=== PATIENT | female | born 1965 | race Caucasian/White ===

== ENCOUNTER 2018-08-07 14:21 | Emergency (ER) | payer OTHER ==
[~2018-08-07] VITALS: Ht 165.1 cm; Wt 51.7 kg
--- NOTE | 2018-08-07 14:21 | NUR ---
BIB SELF FOR ANXIETY AND PANIC ATTACK, "MY HANDS AND FEET FEELS NUMB". TO ER BED 2, HOOKED TO MONITOR, VSS, CHANGED TO DAREK, AWAITING MD MASON.
--- NOTE | 2018-08-07 14:52 | NUR ---
DR CAREY AT BEDSIDE
[2018-08-07] MEDS ORDERED: LORAZEPAM 0.5 MG TABLET PO ONE (15:00)
[2018-08-07] MEDS ORDERED: LORAZEPAM 0.5 MG TABLET ONE (15:08)
[2018-08-07 15:10] LABS: BASOPHILS % (AUTO) 0.7 % (0.0-2.0); EOSINOPHILS % (AUTO) 0.7 % (0.0-6.0); HEMATOCRIT 43 % (33-45); HEMOGLOBIN 14.6 g/dL (11.5-14.8); LYMPHOCYTES # (AUTO) 0.8 /CMM (0.8-4.8); LYMPHOCYTES % (AUTO) 13.1 % (20.0-44.0); MEAN CORPUSCULAR HGB CONC 34 g/dl (31.0-36.0); MEAN CORPUSCULAR VOLUME 87 fL (82-100); MONOCYTES # (AUTO) 0.3 /CMM (0.1-1.30); MONOCYTES % (AUTO) 5.4 % (2.0-12.0); NEUTROPHILS # (AUTO) 4.8 /CMM (1.8-8.9); NEUTROPHILS % (AUTO) 80.1 % (43.0-81.0); PLATELET COUNT (AUTO) 258 /CMM (150-450); RED BLOOD CELL COUNT(AUTO) 4.91 MIL/uL (4.0-5.2); WHITE BLOOD COUNT (AUTO) 5.9 K/uL (4.3-11.0)
[2018-08-07 15:17] LABS: CALCIUM, SERUM 9.4 mg/dL (8.5-10.1); CARBON DIOXIDE 20 mmol/L (21-32); CHLORIDE 105 mmol/L (98-107); GLUCOSE 109 mg/dL (74-106); POTASSIUM 3.5 mmol/L (3.5-5.1); SODIUM SERUM 139 mmol/L (136-145); UREA NITROGEN, BLOOD 12 mg/dL (7-18)
--- NOTE | 2018-08-07 15:55 | NUR ---
PT IN BED COMFORTABLE, HOOKED TO MONITOR, VSS, KEPT SAFE AND WARM.
--- NOTE | 2018-08-07 17:19 | NUR ---
IV removed. Catheter intact and site benign. Pressure and 4x4 applied to site. No bleeding noted.Patient discharged to home in stable condition. Written and verbal after care instructions given. Patient verbalizes understanding of instruction.
[2018-08-07 17:22] VITALS: BP 117/78
--- NOTE | 2018-08-07 17:23 | NUR ---
Anna Marie marquez in [facility] - 08/07/18 at [address] NILAM FROM [employer] SPEAKING TO DR CAREY
== END 2018-08-07 17:24 | disposition home or self-care (01) ==
LOC: ER 14:21
DX: F41.9 Anxiety disorder, unspecified (principal); Z60.2 Problems related to living alone
CPT/HCPCS: 36415; 71045-TC; 80048-TC; 84484-TC; 84703-TC; 85025-TC